=== PATIENT | female | born 1975 | race Caucasian/White ===

== ENCOUNTER 2017-06-05 03:50 | Emergency (ER) | payer OTHER, MEDICAID ==
[~2017-06-05] VITALS: Ht 157.5 cm; Wt 68.0 kg
--- NOTE | 2017-06-05 03:50 | NUR ---
BIB [facility] TO ER BED 9
[2017-06-05 03:54] VITALS: BP 133/87
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
[2017-06-05 04:35] VITALS: BP 133/87
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
== END 2017-06-05 04:35 | disposition home or self-care (01) ==
LOC: MED 03:50
DX: Z02.89 Encounter for other administrative examinations (principal); F17.210 Nicotine dependence, cigarettes, uncomplicated; V89.2XXA Person injured in unspecified motor-vehicle accident, traffic, initial encounter; Y93.89 Activity, other specified; Y92.410 Unspecified street and highway as the place of occurrence of the external cause; Y99.8 Other external cause status
CPT/HCPCS: 99283

== ENCOUNTER 2020-02-07 14:21 | Emergency (ER) | payer MEDICAID, OTHER ==
[~2020-02-07] VITALS: Ht 157.5 cm; Wt 72.6 kg
[2020-02-07 14:26] VITALS: BP 167/86
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
[2020-02-07] MEDS ORDERED: KETOROLAC 60 MG/2 ML VIAL IM ONE (14:50)
--- NOTE | 2020-02-07 15:17 | NUR ---
Dr. Ugarte is re-evaluating the patient at bedside.
[2020-02-07 15:28] VITALS: BP 167/86
== END 2020-02-07 15:28 | disposition home or self-care (01) ==
LOC: MED 14:21
DX: S63.616A Unspecified sprain of right little finger, initial encounter (principal); F17.200 Nicotine dependence, unspecified, uncomplicated; X58.XXXA Exposure to other specified factors, initial encounter; Y93.89 Activity, other specified; Y92.89 Other specified places as the place of occurrence of the external cause; Y99.8 Other external cause status
CPT/HCPCS: 29130; 73140; 96372; 99283; J1885; Q0092

== ENCOUNTER 2021-01-01 20:16 | Emergency (ER) | payer OTHER ==
[~2021-01-01] VITALS: Ht 157.5 cm; Wt 70.8 kg
[2021-01-01 20:28] VITALS: BP 134/90
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
[2021-01-01] MEDS ORDERED: AMOXIL/CLAVULANATE 875/125 MG 1 TAB PO ONE (20:55)
[2021-01-01] MEDS ORDERED: HYDROcodone/APAP 5/325 MG 1 TAB TAB PO ONE (20:55)
[2021-01-01] MEDS ORDERED: IBUPROFEN 600 MG TAB PO ONE (20:55)
[2021-01-01] MEDS ORDERED: IBUP-2213 PO (21:01)
[2021-01-01] MEDS ORDERED: ACET-8386 PO ×2 (21:01→21:02)
[2021-01-01] MEDS ORDERED: AMOX1TAB8 PO (21:01)
[2021-01-01 21:23] VITALS: BP 134/90
--- NOTE | 2021-01-01 21:24 | NUR ---
Patient discharged with v/s stable. Written and verbal after care instructions given and explained. Patient alert, oriented and verbalized understanding of instructions. Ambulatory with steady gait. All questions addressed prior to discharge. ID band removed. Patient advised to follow up with PMD. Rx of HYDROCODONE, AMOXICILLIN, IBUPROFEN given. Patient educated on indication of medication including possible reaction and side effects. Opportunity to ask questions provided and answered.
== END 2021-01-01 21:24 | disposition home or self-care (01) ==
LOC: MED 20:16
DX: K04.7 Periapical abscess without sinus (principal); F17.210 Nicotine dependence, cigarettes, uncomplicated; Z79.899 Other long term (current) drug therapy; Z71.6 Tobacco abuse counseling
CPT/HCPCS: 99284

== ENCOUNTER 2021-04-15 21:16 | Emergency (ER) | payer OTHER ==
[~2021-04-15] VITALS: Ht 157.5 cm; Wt 68.0 kg
[~2021-04-15 21:16] MED LIST: ACET-8386 PO; AMOX1TAB8 PO; IBUP-2213 PO
[2021-04-15 21:46] VITALS: BP 138/80
[2021-04-15] MEDS ORDERED: ACETAMINOPHEN EXTRA STRENGTH 500 MG TAB PO ONE (22:15)
[2021-04-15] MEDS ORDERED: NAPR-1560 PO (22:54)
[2021-04-15 22:55] VITALS: BP 138/80
--- NOTE | 2021-04-15 22:55 | NUR ---
SEE COMPLETE ASSESSMENT
== END 2021-04-15 23:05 | disposition home or self-care (01) ==
LOC: MED 21:16
DX: S63.501A Unspecified sprain of right wrist, initial encounter (principal); V00.141A Fall from scooter (nonmotorized), initial encounter; Y93.89 Activity, other specified; Y92.89 Other specified places as the place of occurrence of the external cause; Y99.8 Other external cause status
CPT/HCPCS: 73110; 73130; 99284